=== PATIENT | male | born 1970 | race Caucasian/White ===

== ENCOUNTER 2018-04-26 10:11 | Emergency (ER) | payer MEDICAID ==
[~2018-04-26] VITALS: Ht 180.3 cm; Wt 86.8 kg
[~2018-04-26 10:11] MED LIST: NO HOME MEDS
[2018-04-26 10:56] LABS: BASOPHILS % (AUTO) 0.4 % (0-1); EOSINOPHILS # (AUTO) 0.1 X10'3 (0-0.9); EOSINOPHILS % (AUTO) 0.6 % (0-6); HEMATOCRIT 46.2 % (42.0-52.0); HEMOGLOBIN 15.3 g/dl (14.0-17.9); LYMPHOCYTES # (AUTO) 0.9 X10'3 (1.1-4.8); LYMPHOCYTES % (AUTO) 8.7 % (21-51); MEAN CORPUSCULAR VOLUME 87.8 FL (78-98); MEAN PLATELET VOLUME 7.1 FL (7.4-10.4); MONOCYTES # (AUTO) 0.5 X10'3 (0-0.9); MONOCYTES % (AUTO) 4.7 % (2-12); NEUTROPHILS # (AUTO) 9.1 X10'3 (1.8-7.7); NEUTROPHILS % (AUTO) 85.6 % (42-75); PLATELET COUNT 332 X10'3 (140-440); RED BLOOD COUNT 5.27 X10'6 (4.70-6.10); RED CELL DISTRIBUTION WIDTH 15.5 % (11.5-14.5); WHITE BLOOD COUNT 10.6 X10'3 (4.5-11.0)
[2018-04-26 11:03] LABS: PROTHROMBIN TIME 10.1 SECONDS (9.0-12.0)
[2018-04-26 11:05] LABS: ALANINE AMINOTRANSFERASE 28 U/L (12-78); ALBUMIN 3.4 G/DL (3.4-5.0); ALBUMIN/GLOBULIN RATIO 0.8 (1.1-1.5); ALKALINE PHOSPHATASE 75 IU/L (46-116); ANION GAP 7 (8-16); ASPARTATE AMINO TRANSFERASE 15 U/L (10-37); BILIRUBIN,TOTAL 0.5 MG/DL (0.1-1.0); BLOOD UREA NITROGEN 12 MG/DL (7-18); BUN/CREATININE RATIO 13.3 (5.4-32.0); CALCIUM 8.9 MG/DL (8.5-10.1); CHLORIDE 102 MMOL/L (99-107); GLUCOSE 120 MG/DL (70-104); SODIUM 140 MMOL/L (135-145); TOTAL PROTEIN 7.6 G/DL (6.4-8.2); eGFR 89 ML/MIN
[2018-04-26 12:48] LABS: CLARITY,URINE CLEAR (Clear); COLOR,URINE YELLOW (Yellow); GLUCOSE, URINE NEGATIVE (Neg); KETONES,URINE NEGATIVE (Neg); LEUKOCYTE ESTERASE ,URINE NEGATIVE (Neg); NITRITES, URINE NEGATIVE (Neg); OCCULT BLOOD,URINE TRACE-INTACT (Neg); PH,URINE 5.5 (4.8-8.0); PROTEIN,URINE NEGATIVE (Neg); UROBILINOGEN,URINE 0.2 E.U/dL (0.2-1.0)
[2018-04-26 12:51] LABS: UA COLLECTION TYPE NON-SPECIFIED
[2018-04-26 12:54] LABS: MUCUS STRANDS MANY /LPF (Neg); SQUAMOUS EPITHELIAL CELL,UR FEW /LPF (FEW)
[2018-04-26 12:55] LABS: BACTERIA,URINE FEW /HPF (Neg); WBC,URINE 0-4 /HPF (0-4)
[2018-04-26 14:11] VITALS: BP 134/85
== END 2018-04-26 14:56 | disposition home or self-care (01) ==
LOC: ER 10:12
DX: B34.9 Viral infection, unspecified (principal); R61 Generalized hyperhidrosis; R00.0 Tachycardia, unspecified; I10 Essential (primary) hypertension; Z88.0 Allergy status to penicillin; Z59.0 Homelessness
CPT/HCPCS: 36415; 80053; 81001; 85025; 85610; 87502; 87503; 99284

== ENCOUNTER 2021-01-23 07:40 | Emergency (ER) | payer MEDICAID ==
[~2021-01-23] VITALS: Ht 180.3 cm; Wt 88.6 kg
[2021-01-23] MEDS ORDERED: aspirin 81mg tab.chew PO ONE (08:20)
[2021-01-23] MEDS ORDERED: cloNIDine 0.1 mg tablet PO STA (08:23)
[2021-01-23 08:52] LABS: BASOPHILS % (AUTO) 0.5 % (0-1); EOSINOPHILS # (AUTO) 0.2 X10'3 (0-0.9); EOSINOPHILS % (AUTO) 2.2 % (0-6); HEMATOCRIT 43.6 % (42.0-52.0); HEMOGLOBIN 14.6 g/dl (14.0-17.9); LYMPHOCYTES # (AUTO) 1.5 X10'3 (1.1-4.8); LYMPHOCYTES % (AUTO) 16.4 % (21-51); MEAN CORPUSCULAR HEMOGLOBIN 29.8 PG (27.0-31.0); MEAN CORPUSCULAR HGB CONC 33.5 g/dL (33.0-36.5); MEAN CORPUSCULAR VOLUME 88.9 FL (78-98); MEAN PLATELET VOLUME 7.1 FL (7.4-10.4); MONOCYTES # (AUTO) 0.7 X10'3 (0-0.9); MONOCYTES % (AUTO) 7.4 % (2-12); NEUTROPHILS # (AUTO) 6.8 X10'3 (1.8-7.7); NEUTROPHILS % (AUTO) 73.5 % (42-75); PLATELET COUNT 344 X10'3 (140-440); RED BLOOD COUNT 4.91 X10'6 (4.70-6.10); RED CELL DISTRIBUTION WIDTH 15.2 % (11.5-14.5); WHITE BLOOD COUNT 9.2 X10'3 (4.5-11.0)
[2021-01-23 09:04] LABS: PARTIAL THROMBOPLASTIN TIME 27 SECONDS (22-32)
[2021-01-23 09:07] LABS: ALANINE AMINOTRANSFERASE 21 U/L (12-78); ALBUMIN 3.8 G/DL (3.4-5.0); ALKALINE PHOSPHATASE 94 IU/L (46-116); ANION GAP 7 (8-16); ASPARTATE AMINO TRANSFERASE 17 U/L (10-37); BILIRUBIN,TOTAL 0.4 MG/DL (0.1-1.0); BLOOD UREA NITROGEN 11 MG/DL (7-18); BUN/CREATININE RATIO 12.1 (5.4-32.0); CALCIUM 8.9 MG/DL (8.5-10.1); CHLORIDE 105 MMOL/L (99-107); CREATININE 0.91 MG/DL (0.60-1.10); GLUCOSE 88 MG/DL (70-104); POTASSIUM 4.1 MMOL/L (3.5-5.1); SODIUM 141 MMOL/L (135-145); TOTAL CARBON DIOXIDE 28.9 MMOL/L (24-32); TOTAL PROTEIN 7.8 G/DL (6.4-8.2); eGFR 87 ML/MIN
[2021-01-23 09:15] LABS: ETHANOL < 0.010 GM/DL (0.0-0.010); MAGNESIUM 2.3 MG/DL (1.5-2.4)
[2021-01-23] MEDS ORDERED: dexamethasone sod phosphate 10mg/ml inj IM STA (09:41)
[2021-01-23] MEDS ORDERED: diltiazem 5mg/ml 5ml inj. IV ONE (09:45)
[2021-01-23] MEDS ORDERED: diltiazem 30mg tablet PO ONE (09:50)
[2021-01-23] MEDS ORDERED: cloNIDine 0.1 mg tablet PO ONE (09:50)
[2021-01-23] MEDS ORDERED: lisinopril 10 MG tablet PO ONE (10:45)
[2021-01-23] MEDS ORDERED: LISI20TA28 PO (10:51)
[2021-01-23 11:22] VITALS: BP 168/115
== END 2021-01-23 11:24 | disposition home or self-care (01) ==
LOC: ER 07:41
DX: I16.0 Hypertensive urgency (principal); R51.9 Headache, unspecified; Z88.0 Allergy status to penicillin
CPT/HCPCS: 36415; 70450; 80053; 80320; 83735; 83880; 84484; 85025; 85610; 85730; 93005; 96372; 99285; J1100; 71045

== ENCOUNTER 2024-01-05 08:38 | Emergency (ER) | payer MEDICAID ==
[~2024-01-05] VITALS: Ht 180.3 cm; Wt 89.6 kg
[2024-01-05 08:40] VITALS: BP 185/112; PULSE 79; RESP 16; TEMP 98.6; O2SAT 97
[2024-01-05] MEDS: sulfamethoxazole/trimethoprim DS (800/160mg) tablet PO ONE (09:25)
[2024-01-05] MEDS ORDERED: SULF1TAB49 PO (09:41)
== END 2024-01-05 10:28 | disposition home or self-care (01) ==
LOC: ER 08:38
DX: L02.512 Cutaneous abscess of left hand (principal); L03.114 Cellulitis of left upper limb; I10 Essential (primary) hypertension; Z72.89 Other problems related to lifestyle; Z56.0 Unemployment, unspecified; Z88.0 Allergy status to penicillin
CPT/HCPCS: 10060; 99283; A6258; A6449

== ENCOUNTER 2024-03-06 10:10 | Emergency (ER) | payer MEDICAID ==
[~2024-03-06] VITALS: Ht 180.3 cm; Wt 88.5 kg
[2024-03-06] MEDS: proparacaine 0.5% ophthalmic drops 15ml EACHEYE ONE (11:04)
[2024-03-06] MEDS ORDERED: HYDR-3965 PO (11:43)
[2024-03-06] MEDS ORDERED: CIPR2.5D21 RIGHTEYE (11:43)
[2024-03-06 11:55] VITALS: BP 144/78; PULSE 74; RESP 18; TEMP 98.1; O2SAT 99
== END 2024-03-06 11:57 | disposition home or self-care (01) ==
LOC: ER 10:10
DX: T15.81XA Foreign body in other and multiple parts of external eye, right eye, initial encounter (principal); I10 Essential (primary) hypertension; Z88.0 Allergy status to penicillin; Z72.89 Other problems related to lifestyle; Z56.0 Unemployment, unspecified
CPT/HCPCS: 99283